=== PATIENT | male | born 1945 ===

== ENCOUNTER → 2017-05-16 | Outpatient (CLI) | payer MEDICARE, OTHER | LOC: GMAL 10:44 | PROVIDERS: ATTEND Family Medicine | DX: Z12.5 Encounter for screening for malignant neoplasm of prostate (principal) ==

== ENCOUNTER → 2017-05-29 | Outpatient (CLI) | payer MEDICARE, OTHER ==
--- NOTE | 2017-05-29 16:48 | RAD ---
EXAM DESCRIPTION: Hip,Left 2 Views CLINICAL HISTORY: HIP PAIN COMPARISON: None Available. TECHNIQUE: AP/frog leg lateral FINDINGS: Two views of the left hip demonstrate moderate hypertrophic degenerative lipping at the lateral acetabular rim and mild narrowing of the joint space. The femoral head and neck and trochanteric region are intact without fracture or dislocation. The left hemipelvis appears intact. IMPRESSION: Mild degenerative changes left hip. Electronically signed by: Thomas Gonzales MD 05/29/2017 4:47 PM [facility]
--- NOTE | 2017-05-29 16:51 | RAD ---
EXAM DESCRIPTION: Pelvis CLINICAL HISTORY: 71 years Male, HIP PAIN COMPARISON: None. FINDINGS: The bony pelvis appears intact without evidence of fracture or disruption of the bony pelvic ring. The pubic rami and the ischii appear intact. Sacrum and neural arches are unremarkable. Mild degenerative changes involving each hip are noted. IMPRESSION: Negative examination. Electronically signed by: Thomas Gonzales MD 05/29/2017 4:50 PM [facility]
== END | disposition home or self-care (01) ==
LOC: RAD 08:48
PROVIDERS: ATTEND Orthopaedic Surgery
DX: M25.552 Pain in left hip (principal)

== ENCOUNTER → 2017-10-05 | Outpatient (CLI) | payer MEDICARE, OTHER ==
--- NOTE | 2017-10-05 18:42 | US ---
EXAM DESCRIPTION: Abdomen,Complete CLINICAL HISTORY: ABDOMINAL PAIN COMPARISON: None Available.] TECHNIQUE: Complete abdominal ultrasound FINDINGS: Hepatic steatosis is observed. There is no focal hepatic mass. Gallstones are observed in the gallbladder. The gallbladder appears partially contracted. The common bile duct is normal in caliber measuring 4 mm. Portions of the pancreas seen appear normal. The spleen is normal in appearance. The kidneys are normal in size, shape, and echotexture. A cyst is observed along the lateral margin of the left kidney measuring 3 cm in diameter. There is a lower pole left cyst measuring 1.7 cm in diameter. The IVC and the proximal aorta are unremarkable. IMPRESSION: 1. Hepatic steatosis. 2. Cholelithiasis. 3. Simple left renal cysts Electronically signed by: Major Capone MD 10/05/2017 6:39 PM CDT
== END ==
LOC: US 08:28
PROVIDERS: ATTEND Family Medicine
DX: K80.80 Other cholelithiasis without obstruction (principal); K76.0 Fatty (change of) liver, not elsewhere classified; N28.1 Cyst of kidney, acquired

== ENCOUNTER → 2018-02-21 | Outpatient (CLI) | payer MEDICARE, OTHER ==
--- NOTE | 2018-02-22 09:19 | MRI ---
Study: MRI of the Right Knee. Indication: KNEE PAIN Technique: Multiplanar, multi sequence MRI of the right knee was obtained without intravenous contrast. Comparison: None. Findings: ACL and PCL intact. MCL and FCL thickened approximately indicating sequela of remote sprains. Tendinosis popliteus tendon origin noted as well. Remaining lateral collateral ligament complex structures are intact. Prominent marrow edema noted throughout the entirety of the lateral femoral condyle and may be contusive or stress-related. No fracture. Moderate size knee effusion noted. Degenerative signal throughout the medial meniscus without tear. Free edge fraying posterior horn lateral meniscus. Areas of grade 2 chondral thinning medial and lateral knee compartments with subtle grade 3 chondrosis central aspect lateral tibial plateau and lateral margin of the medial femoral condyle. Patellofemoral extensor mechanism intact. Patella normally located. Grade 2 chondral surface irregularity throughout the medial patellar facet/apex extending into the lateral facet as well. Subtle grade 3 chondral delamination suspected at the inferior most margin of the midline femoral trochlea with involved area measuring approximately 7 mm AP by 4 mm transverse. Impression: Marrow edema throughout the lateral femoral condyle which may be contusive or stress-related. No fracture identified. Degenerative signal medial meniscus without tear. Free edge fraying posterior horn lateral meniscus. Prior MCL and FCL sprains without acute tear. Moderate size knee effusion. Tricompartmental chondrosis with areas of grade 2 and 3 chondral loss as detailed above. Electronically signed by: Severino Owens MD 02/22/2018 9:17 AM CDT
== END ==
LOC: MRI 08:00
PROVIDERS: ATTEND Family Medicine
DX: M25.561 Pain in right knee (principal); M25.461 Effusion, right knee

== ENCOUNTER → 2018-06-18 | Outpatient (CLI) | payer MEDICARE, OTHER | LOC: GMAL 10:54 | PROVIDERS: ATTEND Family Medicine | DX: D51.3 Other dietary vitamin B12 deficiency anemia (principal); Z12.5 Encounter for screening for malignant neoplasm of prostate; R53.83 Other fatigue; E55.9 Vitamin D deficiency, unspecified | CPT/HCPCS: 82306; 82607; 84443; G0103 ==

== ENCOUNTER → 2018-09-17 | Outpatient (CLI) | payer MEDICARE, OTHER | LOC: GMAL 10:25 | PROVIDERS: ATTEND Family Medicine | DX: E53.8 Deficiency of other specified B group vitamins (principal); E55.9 Vitamin D deficiency, unspecified ==

== ENCOUNTER → 2019-06-19 | Outpatient (CLI) | payer MEDICARE, OTHER | LOC: GMAL 10:19 | PROVIDERS: ATTEND Family Medicine | DX: E53.8 Deficiency of other specified B group vitamins (principal); E55.9 Vitamin D deficiency, unspecified; R53.83 Other fatigue; I10 Essential (primary) hypertension; E11.9 Type 2 diabetes mellitus without complications; E78.49 Other hyperlipidemia; M10.9 Gout, unspecified; Z12.5 Encounter for screening for malignant neoplasm of prostate | CPT/HCPCS: 82306; 82607; 84443; 84550; G0103 ==

== ENCOUNTER → 2019-12-18 | Outpatient (CLI) | payer MEDICARE, OTHER | LOC: GMAL 11:36 | PROVIDERS: ATTEND Family Medicine | DX: E55.9 Vitamin D deficiency, unspecified (principal) ==

== ENCOUNTER → 2019-12-27 | Outpatient (CLI) | payer MEDICARE, OTHER ==
--- NOTE | 2019-12-27 15:00 | US ---
EXAM DESCRIPTION: Aorta: Ultrasound. CLINICAL HISTORY: ABDOMINAL AORTIC ANEURYSM COMPARISON: None. TECHNIQUE: Transcutaneous scanning: Two-dimensional and Doppler modes. FINDINGS: Abdominal aorta diameter - Proximal: 3.1 x 3.0 cm. Mid: 3.0 x 2.9 cm. Distal: 1.7 cm. Common Iliac diameter - Right: 1.0 mm. Left: 1.0 mm. Other: Atherosclerotic thickening of the aortic lumen.. IMPRESSION: Small proximal abdominal aortic aneurysm. [facility] Best Practice guidelines: 3.1 cm abdominal aortic aneurysm. Recommend follow-up every 3 years. Reference: J Am Trevon Radiol 2013;10:789-794. Electronically signed by: Tru Desouza MD 12/27/2019 2:58 PM CDT
== END ==
LOC: US 08:21
PROVIDERS: ATTEND Family Medicine
DX: I71.4 Abdominal aortic aneurysm, without rupture (principal)

== ENCOUNTER → 2020-01-21 | Outpatient (CLI) | payer MEDICARE, OTHER | LOC: GMAL 10:28 | PROVIDERS: ATTEND Family Medicine | DX: M10.9 Gout, unspecified (principal); E55.9 Vitamin D deficiency, unspecified; I10 Essential (primary) hypertension ==

== ENCOUNTER → 2020-02-21 | Outpatient (CLI) | payer MEDICARE, OTHER | LOC: GMAE 12:26 | PROVIDERS: ATTEND Family Medicine | DX: N39.0 Urinary tract infection, site not specified (principal) ==